=== PATIENT | male | born 1950 | race Caucasian/White ===

== ENCOUNTER 2021-01-30 06:09 | Observation (INO) ==
--- NOTE | 2021-01-03 12:49 | History & Physical Report ---
Date of Service January 03, 2021 date of surgery: 01-30-21 Procedure: Right Total Knee Arthroplasty Assessment & Plan (1) Arthritis of right knee: Risks and benefits of procedure discussed in detail today, patient would like to proceed with a right total knee replacement at [facility] as scheduled. will obtain medical clearance from Dr Chatman prior to surgery as well as obtain PATs at [facility]. Will place on ASA 81mg po bid x 1 month post op, f/u 2 weeks post op for routine post-operative care and x-ray, sooner if having any problems. will make arrangements for HHPT at the time of discharge. At this point in time, has failed conservative measures and would like to proceed with surgical intervention. He will speak with his pain management physician re: his post op Rx, he will have these filled by them after his surgery. The risks and benefits have been discussed including, but not limited to, risk of infection, nerve injury, stiffness, loss of motion, failure to improve, etc. Reasonable outcomes and options of treatment were discussed. An explanation of appropriate alternatives to the procedure that may be advantageous were discussed and their risks and benefits, as well as the risks and benefits of not proceeding with treatment. I offered to answer any additional inquiries concerning the treatment involved. All the patient's questions were answered. The patient is agreeable, understanding of the treatment plan and alternatives, and wishes to proceed with the treatment plan. History of Present Illness Chief Complaint: Right knee pain Primary Care Provider: KIMBERLY PCP Harris is a 70 year old male who complains of right knee pain, presents for pre-op evaluation prior to a right total knee replacement by Dr Robles at [facility]. He complains of pain, decreased range of motion and stiffness in the right knee. Currently the patient states that the symptoms are moderate-severe. The pain is described as aching, sharp and throbbing. The symptoms are aggravated by ascending stairs, daily activities, first steps while awake walking. Prior NSAIDs include Ibuprofen and Aleve. he does ambulate with a cane and has had his left knee replaced. Allergies Allergy/AdvReac Type Severity Reaction Status Date / Time No Known Allergies Allergy Verified 11/05/20 12:44 Home Medications Medication Instructions Recorded Confirmed Type aspirin 81 mg PO QAM 11/05/20 11/05/20 History atorvastatin [Lipitor] 80 mg PO PM 11/05/20 11/05/20 History buspirone [BuSpar] 10 mg PO BID 11/05/20 11/05/20 History citalopram [Celexa] 40 mg PO QAM 11/05/20 11/05/20 History doxazosin [Cardura] 8 mg PO HS 11/05/20 11/05/20 History gabapentin 600 mg PO TID 11/05/20 11/05/20 History mirtazapine 15 mg PO HS 11/05/20 11/05/20 History oxycodone 30 mg PO TID PRN 11/05/20 11/05/20 History Past Med/Surg History Medical History Anxiety CAD (coronary artery disease) RCA (2003) Carotid artery stenosis s/p Left CEA (2018) > Mild right ICA, patent left ICA per 02/2020 imaging per [facility] records Depression Hyperlipidemia Osteoarthritis 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 [employer], Follows with Dr. Rubi Cam in [facility]) Surgical History History of CEA (carotid endarterectomy) Left (2018) History of detached retina repair History of left knee replacement Hx of heart artery stent RCA (2003) Social History Smoking Status: Current every day smoker Cigarettes Per Day: 1 1/2 per day (tobacco use x 50 years); Second Hand Exposure: No; Hx Alcohol Use: No Hx Substance Use: No Preferred Language: Cymro Communication Ability: Effective Service Parts Driver Required: No Beliefs That Will Affect Care: None Current Living Situation: Spouse Feels Safe at Home: Yes Assistive Devices: Cane and Glasses Review of Systems Review of Systems: All systems reviewed & are unremarkable except as noted in HPI & below Constitutional: no fever, no chills and no sweats Respiratory: no cough and no dyspnea Cardiovascular: no chest pain, no dyspnea and no orthopnea Gastrointestinal: no abdominal pain, no nausea and no vomiting Musculoskeletal: as per Subjective / HPI Physical Exam Physical Exam: HT: 6ft 2in WT: 90.7kg BP: 120/62 Pulse: 74 Constitutional: WD/WN, vitals as above no acute distress Respiratory: normal respiratory effort, lungs clear to auscultation no respiratory distress, no labored breathing and does not use accessory muscles Cardiovascular: RRR, no murmur, no edema Gastrointestinal (Abdomen): normal bowel sounds, soft, nontender, no hepatosplenomegaly Musculoskeletal: Knee: + knee abnormal to inspection (RIGHT KNEE- ), + effusion (+1 effusion), + limited ROM of knee (ROM 0/3/110), + knee ROM with crepitation, + joint line tenderness (medial joint line) and + Byron's sign positive; no deformity, no skin erythema, no ecchymosis, no valgus laxity, no varus laxity, anterior drawer test negative, Karen's sign negative and pivot shift test negative Results & Data Results & Data ([facility]) Diagnostic Findings Right Knee X-ray showing advanced degenerative changes to the right knee, narrowing of the medial compartment and patello-femoral joint with patellar spurring noted, findings showing joint space narrowing of the medial compartment and patello-femoral joint, osteophyte formation and subchondral sclerosis noted. overall varus alignment. no acute bony pathology noted.
--- NOTE | 2021-01-25 08:43 | Anesthesiology Consultation ---
Date of Service January 25, 2021 Assessment & Plan (1) Encounter for pre-operative examination: Chart Review Chart Review: Acceptable Risk for Surgery and Patient NOT seen in Pre Admission Testing Consults Requested none History Surgery Operation Date: 01/30/21 09:10 Proposed Procedures p Right Total Knee Arthroplasty - Clif Robles DO Height/Weight Height: 6 ft 1 in Weight: 86.183 kg Allergies Allergy/AdvReac Type Severity Reaction Status Date / Time No Known Allergies Allergy Verified 01/17/21 14:12 Medications Home Medications Medication Instructions Recorded Confirmed Last Taken atorvastatin [Lipitor] 80 mg PO PM 11/05/20 01/17/21 Unknown buspirone [BuSpar] 10 mg PO BID 11/05/20 01/17/21 Unknown citalopram [Celexa] 40 mg PO QPM 11/05/20 01/17/21 Unknown doxazosin [Cardura] 8 mg PO HS 11/05/20 01/17/21 Unknown gabapentin 600 mg PO TID 11/05/20 01/17/21 Unknown mirtazapine 7.5 mg PO HS 11/05/20 01/17/21 Unknown oxycodone 30 mg PO TID PRN 11/05/20 01/17/21 Unknown aspirin [Aspir-81] 81 mg PO HS 01/17/21 01/17/21 Unknown multivitamin 1 tab PO QAM 01/17/21 01/17/21 Unknown Past Medical History Medical History Anxiety CAD (coronary artery disease) RCA (2003) Carotid artery stenosis s/p Left CEA (2018) > Mild right ICA, patent left ICA per 02/2020 imaging per telephone [facility] records Depression Hyperlipidemia Myocardial Infarction 2003-F/U DR HENRIK HRERERA CORDOVA Osteoarthritis 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 [employer], Follows with Dr. Rubi Cam in [facility]) Pneumonia DX'D 12/03/20-COMPLETED ANTIBIOTICS WEEK OF 01/07/21 SOB (shortness of breath) on exertion "SMOKER" Past Family History Family History Father Family history of diabetes mellitus Past Surgical History Surgical History History of CEA (carotid endarterectomy) Left (2019) History of colonoscopy History of detached retina repair LEFT History of left knee replacement Hx of heart artery stent RCA (2003) Social History Smoking Status: Heavy tobacco smoker Smoking cigarettes per day: 30 CIGS A DAY Do You Dip or Chew Tobacco: No Hx Alcohol Use: No Hx Substance Use: No substance use type: does not use Testing Laboratory Results 12/28/20 wbc: 9.6 hb: 13.7 hct: 43 plt: 154 na: 139 k: 4.3 cl: 101 co2: 29 bun: 6 cr: 0.9 inr: 0.9 Electrocardiogram Date: 02/04/19 Findings: + NSR @ Stress Test Date: 11/30/20 Type: nuclear Findings: + ischemia (moderate reversible ischemia in area of old stent. Unchanged since stress test in 2015.) Other Testing cardiology: stable dyspnea on exertion. no exertional chest pain. stress test showed reversible ischemia in area of old stent, but this is unchanged. ok to proceed with surgery.
[~2021-01-30 06:09] MED LIST: ACETAMINOPHEN 500 MG TAB PO SCH; CeleBREX 200 MG CAP PO SCH; FAMOTIDINE 20 MG TAB PO SCH; GABAPENTIN 300 MG CAP PO SCH; LR 500ML BOLUS, THEN 15ML/HR IV SCH; METOCLOPRAMIDE HCL 10 MG TABLET PO SCH; ROPIVACAINE 0.5% HCL/PF 150 MG, BUPIVACAINE 0.75% MPF 20 ML, EPINEPHrine 30MG/30ML (OR ... INSTIL SCH; TRANEXAMIC ACID 1,000 MG **IV Intra-op IV SCH; TRANEXAMIC ACID 1,000 MG **IV Pre-op IV SCH; ceFAZolin 2000MG 2,000 MG/15 ML SYR IV SCH; dexAMETHasone 4 MG TAB PO SCH
--- NOTE | 2021-01-30 06:54 | History & Physical Bridge Note ---
Date of Service January 30, 2021 History & Physical Bridge Note I have examined the patient, reviewed the History & Physical and in the interval since the performance of the History & Physical I have noted the following changes of clinical significance: no changes noted
[2021-01-30] MEDS ORDERED: MIDAZOLAM HCL 1 MG/ML 2ML VIAL ONE (07:23)
[2021-01-30] MEDS ORDERED: fentaNYL citrate 100 MCG/2 ML VIAL ONE (07:23)
[2021-01-30] MEDS ORDERED: PROPOFOL IV EMULSION 10 MG/ML 20 ML VIAL IV ONE ×2 (07:27→09:35)
[2021-01-30] MEDS ORDERED: DEXAMETHASONE SOD INJ 4 MG/ML VIAL ONE (07:28)
[2021-01-30] MEDS ORDERED: BUPIVACAINE 0.25% 30 ML VIAL ONE (07:28)
[2021-01-30] MEDS ORDERED: EPINEPHrine INJ 1 MG/ML AMP ONE (07:28)
[2021-01-30] MEDS ORDERED: BUPIVACAINE 0.5 % 5 MG/1 ML PF 10ML VIAL ONE (07:28)
[2021-01-30] MEDS ORDERED: ORTHO JOINT ANESTHETIC ONE (08:00)
[2021-01-30] MEDS ORDERED: ePHEDrine sulfate 50 MG/ML AMP IV PRN (08:20)
[2021-01-30] MEDS ORDERED: fentaNYL citrate 100 MCG/2 ML VIAL IV PRN (08:20)
[2021-01-30] MEDS ORDERED: PROMETHAZINE HCL 6.25 MG in SODIUM CHLORIDE 0.9% 50 ML IV PRN (08:20)
[2021-01-30] MEDS ORDERED: ATROPINE SULFATE 0.1 MG/ML 10ML SYR IV PRN (08:20)
[2021-01-30] MEDS ORDERED: ONDANSETRON INJ 2 MG/ML 2 ML VIAL IV PRN ×2 (08:20→14:31)
--- NOTE | 2021-01-30 09:38 | Operative Report ---
Post Operative Report Pre & Post Diagnosis Operation Date: 01/30/21 09:00 Pre-Op Diagnosis: Osteoarthritis Right Knee Post-Op Diagnosis: Osteoarthritis Right Knee I identified the patient and participated in the time-out.: Yes Procedure Operation Date: 01/30/21 09:00 Actual Procedures p Right Total Knee Arthroplasty(Right utilizing [employer] journey 2 nonblock total knee arthroplasty size femur 8 tibia 610 mm polythirty 5 oval patella) - Clif Robles DO Surgeon Clif Robles DO Architect Marine Martinez STROUD Estimated Blood Loss 5 Findings Consistent with Post-Op Diagnosis Patient presents with severe end-stage tricompartmental degenerative joint disease 10 degree flexion contracture eburnated [id number] subchondral sclerosis subchondral cystic changes marginal osteophytes moderate to large effusion Specimens Bone and cartilage Drains Medium bore Hemovac Anesthesia Type MAC Spinal Regional Complications none Disposition Accompanied Patient To Recovery: No Disposition: Recovery Room Indications Patient presents after failed attempted conservative management clinic physical therapy anti-inflammatories relative rest activity modification corticosteroid injection viscosupplementation the above intraoperative findings were noted. Description of Procedure After proper prepping and draping of the Right lower extremity anterior midline incision was made over the region of the extensor extensor mechanism after meticulous hemostasis was obtained and maintained in subcutaneous tissues a medial parapatellar incision was made The patella was subluxed lateralward the medial lateral gutter were cleaned from any hypertrophic synovitis and scar tissue of the distal femoral block was placed and the distal femoral osteotomy cut was made subsequently the chamfers anterior and posterior osteotomy cuts were made utilizing the 4-in-1 block the tibia was subsequently subluxed anteriorward medial and ateral meniscal remnants were excised in their entirety remnants of the anterior and posterior cruciate ligaments were excised in their entirety excellent exposure of the proximal tibia was obtained the tibial osteotomy guide was placed on the proximal tibial osteotomy cut was made once again the knee was irrigated with copious amounts of sterile saline solution the patella was subsequently everted lateralward thickened scar tissue around the patella was removed the patella was subsequently cut utilizing a freehand technique and was drilled prepared for final preparation and placement of patella socially flexion-extension gaps were checked and the equal and symmetric trials were placed to the appropriate femoral and tibial trials with poly-spacer being placed for equal flexion and extension gaps and full range of motion including extension to 0 and flexion to 140 the trial components after having been taken to recovery range of motion was subsequently removed meticulous hemostasis was obtained and maintained subsequently a knee block injection of joint cocktail including ropivacaine 0.5% 150 mg. Bupivacaine 0.5% epinephrine 1-200,030 mL's toradol 30 mg dexamethasone 4 mg ketamine 10 mg clonidine 100 micrograms normal saline solution 30 mg was infiltrated into the soft tissues of the posterior knee medial lateral gutters and periosteal synovium special attention was paid to protect neurovascular structures at all times subsequently trial components having been removed the knee was irrigated with sterile saline solution. debris was removed the proximal tibia was subsequently prepared and was made ready for the placement of the tibial component tibial component was also cemented and tamped into position the femoral component was subsequently placed and cemented in the position the patellar component was subsequently cemented in position because hemostasis once again obtained and maintained wound having been thoroughly irrigated with debridement and debridement lavage was performed as well as a medial parapatellar incision closed with #1 Vicryl in interrupted fashion subcutaneous was closed with #2 Vicryl skin was closed with skin clips. PA-C was necessary for prepping and drapping as well as wound closure of deep fascia Sub cutaneous tissue and skin and was necessary for the case. A sterile compressive dressing was placed patient was taken to recovery in stable condition of report dictated by Travis I attest to the content of the Intraoperative Record and any orders documented therein. Any exceptions are noted below. I attest to the content of the Intraoperative Record and any orders documented therein. Any exceptions are noted below.
--- NOTE | 2021-01-30 10:47 | XRay Report ---
XR knee RT 1 or 2V routine HISTORY: 70 years-old Male Surgical Post Op right knee total joint arthroplasty COMPARISON: None TECHNIQUE: 2 views of the right knee FINDINGS: Right knee total joint arthroplasty and patella resurfacing. Expected postoperative soft tissue swell ing and deep tissue air with surgical drainage catheter. Marginal spurring of the patella. No acute f racture, dislocation or unexpected opaque foreign body. IMPRESSION: Right knee total joint arthroplasty with expected postoperative changes. ACT 112: Negative or not required by law. The above report was generated using voice recognition software. It may contain grammatical, syntax o r spelling errors. Electronically signed by: Tomy Kolb M.D. 01/30/2021 10:45 AM
--- NOTE | 2021-01-30 10:59 | Anesthesiology Progress Note ---
Date of Service January 30, 2021 Anesthesia Post Procedure Vital Signs Vital Signs: Temp Pulse Pulse Resp BP Pulse Ox 01/30/21 10:45 36.6 C 73 16 158/76 H 95 01/30/21 10:35 75 18 137/75 97 01/30/21 10:25 72 19 136/64 97 01/30/21 10:16 37.3 C 74 14 120/64 97 01/30/21 07:25 36.8 C 60 18 140/63 95 01/30/21 06:33 37.2 C 73 20 127/63 92 Transfer of Care Handoff Completed per policy Notes Mental Status: alert / awake / arousable Patient Amnestic to Procedure: Yes Nausea / Vomiting: adequately controlled Pain: adequately controlled Airway Patency, RR, SpO2: stable & adequate BP & HR: stable & adequate Hydration State: stable & adequate Neuraxial Anesthesia: was administered and sensory block is resolving Anesthetic Complications: no major complications apparent
[2021-01-30] MEDS ORDERED: METOCLOPRAMIDE HCL INJ 5 MG/ML 2 ML VIAL IV PRN (14:31)
[2021-01-30] MEDS ORDERED: NALOXONE HCL 0.4 MG/1 ML VIAL/CARP IV PRN (14:31)
[2021-01-30] MEDS ORDERED: HYDROmorphone INJ 1 MG/ML SYRINGE IV PRN (14:31)
[2021-01-30] MEDS ORDERED: bisacodyL 10 MG SUPP PR PRN (14:31)
[2021-01-30] MEDS ORDERED: MAGNESIUM HYDROXIDE SUSP 30 ML UDC PO PRN (14:31)
[2021-01-30] MEDS ORDERED: diphenhydrAMINE Capsule 25 MG CAP PO PRN (14:31)
[2021-01-30] MEDS: SODIUM CHLORIDE 0.9% 1000ML 1,000 ML IV SCH (15:30)
[2021-01-30] MEDS: ACETAMINOPHEN 500 MG TAB PO SCH ×2 (15:31→21:04)
[2021-01-30] MEDS: KETOROLAC TROMETHAMINE 15 MG/ML VIAL IV SCH ×2 (15:31→21:08)
[2021-01-30] MEDS: NICOTINE 21 MG/24 HR TDSY TD SCH (15:31)
[2021-01-30] MEDS: GABAPENTIN 600 MG TAB PO SCH ×2 (15:32→21:05)
[2021-01-30] MEDS: ceFAZolin 2000MG 2,000 MG/15 ML SYR IV SCH (17:22)
[2021-01-30] MEDS: CITALOPRAM 40 MG TAB PO SCH (21:02)
[2021-01-30] MEDS: MIRTAZAPINE TAB 15 MG TAB PO SCH (21:02)
[2021-01-30] MEDS: ATORVASTATIN 40 MG TAB PO SCH (21:03)
[2021-01-30] MEDS: SENNA 8.6 MG TAB PO SCH (21:03)
[2021-01-30] MEDS: busPIRone 5 MG TAB PO SCH (21:04)
[2021-01-30] MEDS: DOXAZosin MESYLATE 4 MG TAB PO SCH (21:04)
[2021-01-30] MEDS: DOCUSATE SODIUM 100 MG CAP PO SCH (21:04)
[2021-01-30] MEDS: ASPIRIN 81 MG ECTAB PO SCH (21:04)
[2021-01-31] MEDS: ceFAZolin 2000MG 2,000 MG/15 ML SYR IV SCH (01:21)
[2021-01-31] MEDS: PANTOprazole 40 MG TAB PO PRN (01:22)
[2021-01-31] MEDS: SODIUM CHLORIDE 0.9% 1000ML 1,000 ML IV SCH (01:22)
[2021-01-31] MEDS: KETOROLAC TROMETHAMINE 15 MG/ML VIAL IV SCH ×2 (05:06→10:00)
[2021-01-31] MEDS: ACETAMINOPHEN 500 MG TAB PO SCH ×3 (05:32→22:00)
[2021-01-31 05:59] LABS: Hematocrit (blood only) 34.7 % (42-52); Hemoglobin 11.8 g/dL (14.0-18.0); Mean Corpuscular Hemoglobin 29.2 pg (25-34); Mean Corpuscular Volume 85.9 fL (80-100); Mean Platelet Volume 9.7 fL (7.4-10.4); Platelet Count 216 K/uL (130-400); RDW Coefficient of Variation 14.4 % (11.5-14.5); RDW Standard Deviation 45.3 fL (36.4-46.3); Red Blood Count 4.04 M/uL (4.7-6.1)
[2021-01-31 06:29] LABS: BUN Creatinine Ratio 14.1 (10-20); Calcium 8.5 mg/dl (8.5-10.1); Est GFR (African American) 100.6 ml/min; Est GFR (Non-African American) 86.8 ml/min; Potassium 3.8 mmol/L (3.5-5.1)
--- NOTE | 2021-01-31 08:52 | Orthopedic Progress Note ---
Date of Service January 31, 2021 Assessment & Plan (1) Arthritis of right knee: Postop day 1 Leukocytosis-patient asymptomatic this morning. Likely secondary to preoperative steroids and or surgical stress. PT/OT protocols. Weightbearing as tolerated. DVT prophylaxis-aspirin p.o. twice daily, SCDs, MAURICIO hose. Pain management as written DC planning-patient planning for home health services upon discharge. Admission and Anticipated Discharge Date Admission Date: January 30, 2021 Subjective Postop day 1 Patient sleeping upon arrival. Easily awoken. No complaints this morning. Pain is controlled. Denies shortness of breath, chest pain, lightheadedness. Physical Exam Physical Exam: Dressings are clean, dry, and intact. Calves are soft and nontender. Neurovascular is intact. Toes are mobile. He has good dorsiflexion and plantarflexion of his right foot. Hemovac drainage was 100 mL from the previous shift. Results & Data ([facility]) Vital Signs (Past 12 Hours) Vital Signs Temp Pulse Resp BP Pulse Ox 01/31/21 07:20 36.6 C 69 16 140/70 92 01/31/21 03:22 36.5 C 58 L 17 173/70 H 91 01/30/21 22:59 36.4 C L 63 17 184/75 H 92 Laboratory Results Laboratory Results WBC 17.20 K/uL (4.8-10.8) H 01/31/21 05:06 RBC 4.04 M/uL (4.7-6.1) L 01/31/21 05:06 Hgb 11.8 g/dL (14.0-18.0) L 01/31/21 05:06 Hct 34.7 % (42-52) L 01/31/21 05:06 MCV 85.9 fL (80-100) 01/31/21 05:06 MCH 29.2 pg (25-34) 01/31/21 05:06 MCHC 34.0 g/dL (32-36) 01/31/21 05:06 RDW Std Deviation 45.3 fL (36.4-46.3) 01/31/21 05:06 RDW Coeff of Edwina 14.4 % (11.5-14.5) 01/31/21 05:06 Plt Count 216 K/uL (130-400) 01/31/21 05:06 MPV 9.7 fL (7.4-10.4) 01/31/21 05:06 Sodium 137 mmol/L (136-145) 01/31/21 05:06 Potassium 3.8 mmol/L (3.5-5.1) 01/31/21 05:06 Chloride 107 mmol/L (98-107) 01/31/21 05:06 Carbon Dioxide 28 mmol/L (21-32) 01/31/21 05:06 Anion Gap 2.0 (3-11) L 01/31/21 05:06 BUN 12 mg/dl (7-18) 01/31/21 05:06 Creatinine 0.87 mg/dl (0.6-1.4) 01/31/21 05:06 Est Cr Clr Drug Dosing 88.0 ml/min 01/31/21 05:06 Est GFR ( Amer) 100.6 ml/min 01/31/21 05:06 Est GFR (Non-Af Amer) 86.8 ml/min 01/31/21 05:06 BUN/Creatinine Ratio 14.1 (10-20) 01/31/21 05:06 Glucose 121 mg/dl (70-99) H 01/31/21 05:06 Calcium 8.5 mg/dl (8.5-10.1) 01/31/21 05:06 COVID-19 Eval Order Covid19 [facility]Now [facility] 01/30/21 06:05 SARS-CoV-2, RNA, NAAT NEGATIVE (NEGATIVE) 01/30/21 06:05 Blood Type O Positive 01/30/21 06:32 Antibody Screen NEGATIVE 01/30/21 06:32 Impressions Knee X-Ray 01/30/21 10:28 XR knee RT 1 or 2V routine HISTORY: 70 years-old Male Surgical Post Op right knee total joint arthroplasty COMPARISON: None TECHNIQUE: 2 views of the right knee FINDINGS: Right knee total joint arthroplasty and patella resurfacing. Expected postoperative soft tissue swelling and deep tissue air with surgical drainage catheter. Marginal spurring of the patella. No acute fracture, dislocation or unexpected opaque foreign body. IMPRESSION: Right knee total joint arthroplasty with expected postoperative changes. ACT 112: Negative or not required by law. The above report was generated using voice recognition software. It may contain grammatical, syntax or spelling errors. Electronically signed by: Tomy Kolb M.D. 01/30/2021 10:45 AM
[2021-01-31] MEDS: MULTIVITAMIN TAB PO SCH (09:58)
[2021-01-31] MEDS: GABAPENTIN 600 MG TAB PO SCH ×3 (09:58→20:30)
[2021-01-31] MEDS: busPIRone 5 MG TAB PO SCH ×2 (09:58→20:31)
[2021-01-31] MEDS: NICOTINE 21 MG/24 HR TDSY TD SCH (09:59)
[2021-01-31] MEDS: ASPIRIN 81 MG ECTAB PO SCH ×2 (09:59→20:30)
[2021-01-31] MEDS: DOCUSATE SODIUM 100 MG CAP PO SCH ×2 (09:59→20:35)
[2021-01-31] MEDS: oxyCODONE HCL IR 5 MG TAB (IMMEDIATE RELEASE) PO PRN ×2 (11:52→19:30)
[2021-01-31] MEDS: DOXAZosin MESYLATE 4 MG TAB PO SCH (20:27)
[2021-01-31] MEDS: MIRTAZAPINE TAB 15 MG TAB PO SCH (20:29)
[2021-01-31] MEDS: ATORVASTATIN 40 MG TAB PO SCH (20:30)
[2021-01-31] MEDS: CeleBREX 200 MG CAP PO SCH (20:30)
[2021-01-31] MEDS: CITALOPRAM 40 MG TAB PO SCH (20:31)
[2021-01-31] MEDS: SENNA 8.6 MG TAB PO SCH (20:31)
[2021-02-01] MEDS: oxyCODONE HCL IR 5 MG TAB (IMMEDIATE RELEASE) PO PRN ×2 (05:18→09:38)
[2021-02-01] MEDS: ACETAMINOPHEN 500 MG TAB PO SCH (05:18)
[2021-02-01] MEDS: PANTOprazole 40 MG TAB PO PRN (09:39)
[2021-02-01] MEDS: CeleBREX 200 MG CAP PO SCH (09:39)
[2021-02-01] MEDS: ASPIRIN 81 MG ECTAB PO SCH (09:40)
[2021-02-01] MEDS: MULTIVITAMIN TAB PO SCH (09:40)
[2021-02-01] MEDS: busPIRone 5 MG TAB PO SCH (09:41)
[2021-02-01] MEDS: GABAPENTIN 600 MG TAB PO SCH (09:41)
[2021-02-01] MEDS: DOCUSATE SODIUM 100 MG CAP PO SCH (09:42)
[2021-02-01] MEDS: NICOTINE 21 MG/24 HR TDSY TD SCH (09:42)
--- NOTE | 2021-02-01 10:10 | Orthopedic Progress Note ---
Date of Service February 01, 2021 Assessment & Plan (1) Arthritis of right knee: Postop day 1 PT/OT protocols. Weightbearing as tolerated. DVT prophylaxis-aspirin p.o. twice daily, SCDs, MAURICIO thibodeaux. Pain management as written I will check in with physical therapy to see how patient performed however he looks to be doing better today than yesterday. Most likely will plan on letting him go home today with home health services. DC planning-patient planning for home health services upon discharge. Admission and Anticipated Discharge Date Admission Date: January 30, 2021 Subjective Postop day 2 Patient currently lying in bed. Awake and alert. He appears comfortable. I had arrived earlier when he was starting his physical therapy. He states that his therapy went well and that he walked up to the nurses station and back. He states he worked with stairs as well. Occupational Therapy was about to go into see him near the end of my visit. No new complaints. Physical Exam Physical Exam: Incision is clean, dry, and intact. He has some notable ecchymosis around the wound and some mild swelling consistent with surgery. Hemovac drain has been removed. Calves are soft and nontender. Neurovascular intact. Toes are mobile. Results & Data ([facility]) Vital Signs (Past 12 Hours) Vital Signs Temp Pulse Resp BP Pulse Ox 02/01/21 07:08 36.9 C 61 16 131/52 L 95 02/01/21 06:33 36.8 C 60 18 130/55 L 94 01/31/21 23:40 36.6 C 60 18 145/68 H 93
--- NOTE | 2021-02-01 15:07 | Discharge Summary ---
Date of Service date of discharge: February 01, 2021 date of admission: 01-30-21 Admission HPI Per Admitting Provider Harris is a 70 year old male who complains of right knee pain, presents for pre-op evaluation prior to a right total knee replacement by Dr Robles at [facility]. He complains of pain, decreased range of motion and stiffness in the right knee. Currently the patient states that the symptoms are moderate-severe. The pain is described as aching, sharp and throbbing. The symptoms are aggravated by ascending stairs, daily activities, first steps while awake walking. Prior NSAIDs include Ibuprofen and Aleve. he does ambulate with a cane and has had his left knee replaced. Principal Diagnosis right knee arthritis Discharge Exam Constitutional WD/WN, vitals as above no acute distress Musculoskeletal right knee: NVDI, calf SNT, negative jax sign. DP palpable, able to wiggle toes/ankle movement without difficulty. dressing clean dry and intact. expected post-operative bruising noted. Discharge Data Allergies Allergy/AdvReac Type Severity Reaction Status Date / Time No Known Allergies Allergy Verified 01/30/21 06:40 Procedures Performed Operation Date: 01/30/21 09:00 Actual Procedures p Right Total Knee Arthroplasty(Right) - Clif Robles, Ordered Studies 01/30/21 05:00 US - OR guided needle placemen Routine Hospital Course (1) Arthritis of right knee: Postop day 1 PT/OT protocols. Weightbearing as tolerated. DVT prophylaxis-aspirin p.o. twice daily, SCDs, MAURICIO thibodeaux. Pain management as written I will check in with physical therapy to see how patient performed however he looks to be doing better today than yesterday. Most likely will plan on letting him go home today with home health services. DC planning-patient planning for home health services upon discharge. Total Time Total Time Spent Total Time Spent (In Minutes): 20 Total Time Includes: Examination of the Patient, Discharge Planning and Medication Reconciliation Discharge Plan Discharge Items Patient Disposition: Home - Home Health Services Reason For Visit: Osteoarthritis Right Knee Discharge Diagnosis: right total knee arthroplasty Activity: Per Instructions section Lifting: Wait until after follow-up appointment Weightbearing: Right weightbearing Weightbearing Comment: WBAT with walker Non-emergency contact: Surgeon Call non-emergency contact if: you have any medication questions, your pain is not controlled, your temperature is above 101, your wound has increased redness, your wound has increased drainage and your wound pain has increased Follow-up/Referrals: Agapito Chatman M.D. [Primary Care Provider] - Diet: Regular Addtl Attending Provider Instructions: ACTIVITY RECOMMENDATIONS: SELF CARE INSTRUCTIONS AFTER TOTAL KNEE REPLACEMENT A. You may need to continue a physical therapy program after discharge from the hospital. There are several options available to you. Your doctor will assist you in selecting the best one for you. 1. An out-patient facility 2 to 3 times a week for therapy or home therapy. 2. Continue working on all exercises taught to you in the hospital. Your goals should be to increase bending of your knee to 90 degrees and beyond and to fully straighten your knee. B. You may progress at your own pace from walking with a walker or crutches to a cane; then to no assistive devices. C. Make walking a part of your daily routine. Be up as much as comfortable with rest periods throughout the day. Rest with leg elevation is very important. Use the ice wrap frequently for the first 3-4 weeks. D. There are no restrictions on activities. You may ride in a car, shop, participate in teletype clerk and all social activities. E. Wear the long elastic stockings (MAURICIO hose) 20 hours a day for 2 weeks after surgery. They can be removed several times a day for laundering and for a bath. F. You may shower, no tub baths until cleared by your doctor. SPECIAL CARE INSTRUCTIONS: VERY IMPORTANT TO READ AND REVIEW A. There are a few signs you need to watch for after you are home. Call [facility] if you notice any of the followin. Increased severe knee pain. Some pain is expected especially when you exercise. 2. Increased swelling in your leg or knee; pain or swelling of the calf muscle in either lower leg. 3. Any fluid drainage from the incision. 4. Shortness of breath or chest pain. B. Please call [facility] at if you have any concerns or questions about your operation or recovery. The doctor or his nurse will return your call promptly. C. You must take antibiotics before dental work, bladder, bowel or other surgery. Your doctor will provide you with a permanent care to carry describing this precaution. IMPORTANT: * REMEMBER TO TAKE ASPIRIN, 81 MG, TWICE DAILY FOR 4 WEEKS UNLESS OTHERWISE DIRECTED. THIS IS YOUR BLOOD THINNER. * HIGH RISK PATIENTS MAY BE PRESCRIBED A STRONGER BLOOD THINNER. THIS WILL BE PROVIDED AT DISCHARGE. * CALL IF INCREASED PAIN, REDNESS, DRAINAGE OR FEVER GREATER THAT 101. * WEAR MAURICIO HOSE 20 HOURS PER DAY FOR 2 WEEKS. * DERMABOND Prineo- This is a mesh tape dressing that is covered with glue. It should remain in place until the incision is properly healed, usually 10-14 days. This dressing is designed to naturally slough off. You may trim the excess mesh tape as it peels off. Incision may be briefly wet in a shower. Dry immediately by blotting with a clean, dry towel. Do not bath or swim until instructed by your doctor. Do not scratch, rub, or pick at the dressing. Do not apply any topical ointments or lotions until dressing is completely removed and/or instructed by your doctor. There may be a small piece of suture material at one end of your incision. Do not pull or trim this. If it is bothersome or catching on clothing, you may cover it with a band-aid. IF INCISION IS LEAKING THROUGH DRESSING, CALL THE OFFICE . FOLLOW UP VISIT: If appointment is not already scheduled: Please call [facility] [place] to make a follow-up appointment for 2 weeks after your surgery at . Stand-Alone Forms: My [facility] Medications and DC Order Prescriptions: New celecoxib [Celebrex] 200 mg Capsule 200 mg PO BID 30 Days Qty: 60 RF: 0 aspirin 81 mg Tablet,Delayed Release (Dr/Ec) 81 mg PO BID 30 Days Qty: 60 RF: 0 acetaminophen 500 mg Tablet 1,000 mg PO Q8 14 Days Qty: 84 RF: 0 polyethylene glycol 3350 [Miralax] 17 gram powder in packet 17 g PO DAILY PRN (Reason: constipation) Qty: 5 RF: 0 cefadroxil 500 mg capsule 500 mg PO BID Qty: 28 RF: 1 Narcan 4 mg/actuation spray,non-aerosol 1 sprays INTNAS ONCE Qty: 2 RF: 0 Continued multivitamin Tablet 1 tab PO QAM RF: 0 atorvastatin [Lipitor] 80 mg Tablet 80 mg PO PM RF: 0 gabapentin 600 mg Tablet 600 mg PO TID RF: 0 citalopram [Celexa] 40 mg Tablet 40 mg PO QPM RF: 0 buspirone 10 mg Tablet 10 mg PO BID RF: 0 doxazosin [Cardura] 4 mg Tablet 8 mg PO HS RF: 0 oxycodone 30 mg Tablet 30 mg PO TID PRN (Reason: Pain) RF: 0 mirtazapine 7.5 mg Tablet 7.5 mg PO HS RF: 0 Discontinued aspirin [Aspir-81] 81 mg Tablet,Delayed Release (Dr/Ec) 81 mg PO HS RF: 0 Discharge Orders: Discharge Order (Routine); Ordered 02/01/21 Ordered By: Jethro Cummins/Other Patient Handouts: Living with Osteoarthritis, ED Osteoarthritis Admission Data Admit Date/Time: 01/30/21 10:28 Attending Provider: Clif Robles Admit Provider: Clif Robles Primary Care Provider: Agapito Chatman Other Providers: [facility],Home Healthcare Other Interventions: Discharge Summary Assessment (RN) Last Done: 02/01/21 11:23
== END 2021-02-01 12:40 | disposition home health service (06) ==
LOC: ASU 06:09 → PACUINP 06:09 → 3N 14:25